=== PATIENT | female | born 1990 | race Caucasian/White ===

== ENCOUNTER 2022-06-04 14:39 | Inpatient (IN) | payer OTHER ==
[2022-06-04 17:37] LABS: MCH 14.6 pg (25.7-33.7); MCHC 27.1 g/dl (32.0-36.0); MEAN CELL VOLUME 54.1 fl (80-96); MEAN PLT VOLUME 8.8 fl (7.5-11.1); MONO % 7.1 % (3.8-10.2); NEUT % 25.9 % (42.8-82.8); PLATELET COUNT 251 10^3/uL (134-434); RDW 22.1 % (11.6-15.6); WHITE BLOOD COUNT 4.9 K/mm3 (4.0-10.0)
[2022-06-04 17:38] LABS: HEMOGLOBIN 5.4 GM/dL (10.7-15.3)
[2022-06-04 17:45] LABS: INR 1.05 (0.83-1.09); PROTHROMBIN TIME (PATIENT) 12.1 SEC (9.7-13.0)
[2022-06-04 17:48] LABS: ACTIVATED PTT 26.2 SECONDS (25.2-36.5)
[2022-06-04 17:51] LABS: ALBUMIN 3.9 g/dl (3.4-5.0); CALCIUM 8.1 mg/dL (8.5-10.1)
[2022-06-04 17:52] LABS: BLOOD UREA NITROGEN 11.6 mg/dL (7-18)
[2022-06-04 17:55] LABS: CREATININE 0.5 mg/dL (0.55-1.3)
[2022-06-04 17:56] LABS: BILIRUBIN,TOTAL 0.3 mg/dL (0.2-1); TOT PROT 7.7 g/dl (6.4-8.2)
[2022-06-04 18:22] LABS: ANISOCYTOSIS 3+; MACROCYTOSIS 0
[2022-06-04] MEDS ORDERED: ACETAMINOPHEN 500 MG TABLET (FP) PO PRN (22:04)
[2022-06-04] MEDS ORDERED: ACETAMINOPHEN 500 MG TABLET (FP) ONE (22:10)
[2022-06-05] MEDS ORDERED: ACETAMINOPHEN 500 MG TABLET (FP) PO PRN ×2 (04:18→04:19)
[2022-06-05] MEDS ORDERED: ONDANSETRON 4 MG/2 ML VIAL IVPUSH PRN (04:19)
[2022-06-05] MEDS ORDERED: MELATONIN 5 MG TABLETS PO PRN (04:21)
[2022-06-05] MEDS ORDERED: ACETAMINOPHEN 325 MG TABLET (FP) PO PRN (04:50)
[2022-06-05 07:19] LABS: ALBUMIN 3.4 g/dl (3.4-5.0); BLOOD UREA NITROGEN 14.9 mg/dL (7-18); MAGNESIUM 2.2 mg/dL (1.8-2.4)
[2022-06-05 07:22] LABS: CREATININE 0.5 mg/dL (0.55-1.3); PHOSPHOROUS 3.2 mg/dL (2.5-4.9)
[2022-06-05 07:23] LABS: BILIRUBIN,TOTAL 0.7 mg/dL (0.2-1); TOT PROT 7.1 g/dl (6.4-8.2)
[2022-06-05 07:27] LABS: EOS % 1.9 % (0-4.5); HEMATOCRIT 28.7 % (32.4-45.2); HEMOGLOBIN 8.5 GM/dL (10.7-15.3); LYMPH % 48.2 % (8-40); MCHC 29.5 g/dl (32.0-36.0); MEAN CELL VOLUME 63.3 fl (80-96); MEAN PLT VOLUME 9.1 fl (7.5-11.1); NEUT % 38.9 % (42.8-82.8); PLATELET COUNT 221 10^3/uL (134-434); RBC 4.53 M/mm3 (3.60-5.2); RDW 32.3 % (11.6-15.6); WHITE BLOOD COUNT 5.6 K/mm3 (4.0-10.0)
[2022-06-05 07:30] LABS: MCH 18.7 pg (25.7-33.7)
[2022-06-05] MEDS ORDERED: ENOXAPARIN NA (PORCINE) 40 MG/0.4 ML DISP.SYRIN SQ ONE (09:41)
[2022-06-05] MEDS: ENOXAPARIN NA (PORCINE) 40 MG/0.4 ML DISP.SYRIN SQ SCH (09:41)
[2022-06-05] MEDS ORDERED: LORazepam 2 MG/ML SDV VIAL IVPUSH PRN (12:48)
[2022-06-05] MEDS ORDERED: IRON SUCROSE INJECTION 200 MG in SODIUM CHLORIDE 90 ML IVPB ONE (17:00)
[2022-06-06 00:51] VITALS: BMI 25.3
[2022-06-06] MEDS ORDERED: LEVOTHYROXINE NA 50 MCG TABLET (FP) PO SCH (07:00)
[2022-06-06] MEDS: ENOXAPARIN NA (PORCINE) 40 MG/0.4 ML DISP.SYRIN SQ SCH (09:13)
[2022-06-06 09:33] LABS: HEMOGLOBIN 9.1 GM/dL (10.7-15.3); MCHC 29.4 g/dl (32.0-36.0); MEAN PLT VOLUME 8.8 fl (7.5-11.1); PLATELET COUNT 204 10^3/uL (134-434); RBC 4.92 M/mm3 (3.60-5.2); RDW 31.5 % (11.6-15.6); WHITE BLOOD COUNT 5.5 K/mm3 (4.0-10.0)
[2022-06-06 09:34] LABS: MCH 18.5 pg (25.7-33.7)
[2022-06-06] MEDS ORDERED: IRON SUCROSE INJECTION 200 MG in SODIUM CHLORIDE 90 ML IVPB ONE (09:50)
[2022-06-06 10:20] LABS: ALBUMIN 3.9 g/dl (3.4-5.0); BLOOD UREA NITROGEN 13.3 mg/dL (7-18); CALCIUM 8.2 mg/dL (8.5-10.1)
[2022-06-06 10:23] LABS: CREATININE 0.5 mg/dL (0.55-1.3)
[2022-06-06 10:25] LABS: TOT PROT 7.6 g/dl (6.4-8.2)
[2022-06-06 10:28] LABS: BILIRUBIN,TOTAL 0.5 mg/dL (0.2-1)
[2022-06-06 13:52] VITALS: BP 105/69; PULSE 91; RESP 20; TEMP 98.6
== END 2022-06-06 14:22 | disposition home or self-care (01) | DRG 663 ==
LOC: JER 14:39 → JERBED 17:54 → J7W 06-05 23:46
PROVIDERS: ADMIT Internal Medicine; ATTEND Internal Medicine
PROC: 30233N1 Transfusion of Nonautologous Red Blood Cells into Peripheral Vein, Percutaneous Approach (ICD-10-PCS; principal; 2022-06-04)
DX: D50.9 Iron deficiency anemia, unspecified (principal); B37.9 Candidiasis, unspecified; R53.1 Weakness; N92.0 Excessive and frequent menstruation with regular cycle; R00.0 Tachycardia, unspecified; R00.2 Palpitations; N92.1 Excessive and frequent menstruation with irregular cycle; R42 Dizziness and giddiness
CPT/HCPCS: 36415; 36430; 71046-TC-FY; 74177-TC; 80053; 82272; 82728; 83540; 83550; 83735; 84100; 84436; 84439; 84443; 84479; 84703; 85025; 85027; 85610; 85730; 86850; 86900; 86901; 86922; 93005; 93010; 99285-25; C9803-CS; J1756; P9058; U0003; U0005

== ENCOUNTER 2023-12-18 16:36 | Emergency (ER) | payer OTHER ==
[2023-12-18 16:45] VITALS: BP 106/67; PULSE 94; RESP 18; TEMP 97; BMI 26.0
[2023-12-18] MEDS ORDERED: ACETAMINOPHEN 325 MG TABLET (FP) ONE (18:12)
[2023-12-18] MEDS: ACETAMINOPHEN 325 MG TABLET (FP) PO ONE (18:14)
[2023-12-18 18:33] LABS: BASO % 0.9 % (0-2.0); EOS % 2.2 % (0-4.5); HEMATOCRIT 26.8 % (32.4-45.2); LYMPH % 46.9 % (8-40); MEAN CELL VOLUME 63.6 fl (80-96); MEAN PLT VOLUME 9.7 fl (7.5-11.1); MONO % 10.8 % (3.8-10.2); NEUT % 39.2 % (42.8-82.8); PLATELET COUNT 283 10^3/uL (134-434); RBC 4.21 M/mm3 (3.60-5.2); RDW 18.1 % (11.6-15.6); WHITE BLOOD COUNT 6.1 K/mm3 (4.0-10.0)
[2023-12-18 18:44] LABS: POTASSIUM 4.1 mmol/L (3.5-5.1)
[2023-12-18 18:46] LABS: CALCIUM 8.4 mg/dL (8.5-10.1)
[2023-12-18 18:47] LABS: ALBUMIN 3.8 g/dl (3.4-5.0); BLOOD UREA NITROGEN 15.6 mg/dL (7-18)
[2023-12-18 18:50] LABS: CREATININE 0.7 mg/dL (0.55-1.3)
[2023-12-18 18:51] LABS: BILIRUBIN,TOTAL 0.2 mg/dL (0.2-1)
[2023-12-18 18:52] LABS: TOT PROT 7.4 g/dl (6.4-8.2)
[2023-12-18 19:59] LABS: ANISOCYTOSIS 2+; MACROCYTOSIS 0
== END 2023-12-18 20:11 | disposition home or self-care (01) ==
LOC: JER 16:36
DX: R10.11 Right upper quadrant pain (principal); D50.9 Iron deficiency anemia, unspecified; B15.9 Hepatitis A without hepatic coma
CPT/HCPCS: 36415; 76705-TC; 80053; 83690; 84703; 85025; 99284-25